=== PATIENT | female | born 1980 | race Caucasian/White ===

== ENCOUNTER → 2016-08-27 | Outpatient (CLI) | payer OTHER ==
[~2016-08-27] MED LIST: PREN1CAP20
[2016-08-27 10:32] VITALS: BP 106/64; PULSE 87; RESP 15; TEMP 98.5
== END ==
LOC: CLAB 08:16
PROVIDERS: ATTEND Obstetrics & Gynecology
DX: O36.0920 Maternal care for other rhesus isoimmunization, second trimester, not applicable or unspecified (principal); Z11.3 Encounter for screening for infections with a predominantly sexual mode of transmission; Z3A.00 Weeks of gestation of pregnancy not specified
CPT/HCPCS: 36415; 86850; 86900; 86901; 96372; J2790; 90384

== ENCOUNTER 2016-10-26 23:20 | Inpatient (IN) | payer OTHER ==
[~2016-10-26] VITALS: Ht 167.6 cm; Wt 64.0 kg
[2016-10-26] MEDS ORDERED: LACTATED RINGER'S 1000 ML INJ 1,000 ML IV SCH (23:50)
[2016-10-26] MEDS ORDERED: LACTATED RINGER'S 1000 ML INJ 1,000 ML IV PRN (23:50)
--- NOTE | 2016-10-26 23:50 | HHI.HP ---
HPI Chief Complaint Water broke and contractions Date Seen: Oct 26, 2016 Time Seen: 23:45 Travel History International Travel<30 Days: No Contact w/Intl Traveler<30Days: No Known Affected Area: No History of Present Illness HPI Patient is 36-year-old white female at [address] Luna for care presents with the complaint of her water breaking and now in labor. heart tones are reactive contractions noted on the monitor to be regular and painful. Amnio sure is positive and has gross rupture the membranes noted on exam and OB ED Weeks Gestation: 38 Para: 0 : 1 History Social History Alcohol Use: No Tobacco Use: No Substance Abuse: No Allergies-Medications (Allergen,Severity, Reaction): Coded Allergies: doxycycline (Unverified Allergy, Intermediate, joint swells, 10/06/16) minocycline (Unverified Allergy, Intermediate, joint swells, 10/06/16) tigecycline (Unverified Allergy, Intermediate, joint swells, 10/06/16) amoxicillin (Unverified Allergy, Unknown, throat itches, 10/06/16) penicillin G (Unverified Allergy, Unknown, throat itches, 10/06/16) Home Meds Reported Medications W/O Vit A W/ Fe Carbo (Prenate Mini 18-0.6-0.4-350 mg) 1 Cap Cap 04/02/16 Review of Systems General / Constitutional: No: Fever, Weight Gain, Chills, Other Eyes: No: Diploplia, Blurred Vision, Visual changes, Pain, Photophobia HENT: No: Headaches, Vertigo, Lightheadedness Cardiovascular: No: Irregular Rhythm, Chest Pain or Discomfort, Palpitations, Tachycardia, Syncope, Varicosities, Edema, Cyanosis Respiratory: No: Cough, Short of Breath, Other Gastrointestinal: Abdominal Pain, No: Nausea, Vomiting, Diarrhea Genitourinary: No: Decreased Urinary Output, Oliguria Musculoskeletal: No: Limited ROM, Weakness, Cramping, Edema, Pain Skin: No Rash, No Itching, No Dryness, No Lumps, No Change in Pigmentation, No Change in Nails, No Alopecia, No Lesions Neurologic: No: Weakness, Dizziness, Syncope, Focal Abnormalities, Coordination Problem, Headache, Slurred Speech, Seizures Psychiatric: No: Depression, Suicidal Ideations, Homicidal Ideation Endocrine: No: Heat Intolerance, Cold Intolerance, Polydipsia, Polyuria, Other Physical Exam Narrative GENERAL: Well-nourished, well-developed patient. SKIN: Warm and dry. HEAD: Normocephalic and atraumatic. EYES: No scleral icterus. No injection or drainage. ENT: No nasal drainage noted. Mucous membranes pink. Airway patent. NECK: Supple, trachea midline. No JVD. CARDIOVASCULAR: Regular rate and rhythm without murmurs, gallops, or rubs. RESPIRATORY: Breath sounds equal bilaterally. No accessory muscle use. BREASTS: Bilateral exam showed no masses , no retractions, no nipple discharge. ABDOMEN/GI: Abdomen soft, non-tender, bowel sounds present, no rebound, no guarding Gravid to [38-] weeks size Fundal Height: [38-] GENITOURINARY: External Genitalia: intact and normal in appearance BUS glands: [-] Cervix: [Posterior-] Dilatation: [3-] Effacement: [60-] Station: [-3] Presentation: [vtx-] Membranes: ruptured] positive amnio sure Uterine Contractions: [reg-] FHT's: Category: [1-] Baseline: [133-] Reactive: [-yes] Variability: [mod-] Decels: [none-] EXTREMITIES: No cyanosis or edema. BACK: Nontender without obvious deformity. No CVA tenderness. NEUROLOGICAL: Awake and alert. Motor and sensory grossly within normal limits. Five out of 5 muscle strength in all muscle groups. Normal speech. Caprini VTE Risk Assessment Caprini VTE Risk Assessment: No/Low Risk (score <= 1) Caprini Risk Assessment Model Point Value = 1 Point Value = 2 Point Value = 3 Point Value = 5 Age 41-60 Minor surgery BMI > 25 kg/m2 Swollen legs Varicose veins or History of unexplained or recurrent spontaneous Oral contraceptives or hormone replacement Sepsis (< 1 month) Serious lung disease, including pneumonia (< 1 month) Abnormal pulmonary function Acute myocardial infarction Congestive heart failure (< 1 month) History of inflammatory bowel disease Medical patient at bed rest Age 61-74 Arthroscopic surgery Major open surgery (> 45 min) Laparoscopic surgery (> 45 min) Malignancy Confined to bed (> 72 hours) Immobilizing plaster cast Central venous access Age >= 75 History of VTE Family history of VTE Factor V Leiden Prothrombin [id number] Lupus anticoagulant Anticardiolipin antibodies Elevated serum homocysteine Heparin-induced thrombocytopenia Other congenital or acquired thrombophilia Stroke (< 1 month) Elective arthroplasty Hip, pelvis, or leg fracture Acute spinal cord injury (< 1 month) Prophylaxis Regimen Total Risk Factor Score Risk Level Prophylaxis Regimen 0-1 Low Early ambulation 2 Moderate Order ONE of the following: *Sequential Compression Device (SCD) *Heparin 5000 units SQ BID 3-4 Higher Order ONE of the following medications: *Heparin 5000 units SQ TID *Enoxaparin/Lovenox 40 mg SQ daily (WT < 150 kg, CrCl > 30 mL/min) *Enoxaparin/Lovenox 30 mg SQ daily (WT < 150 kg, CrCl > 10-29 mL/min) *Enoxaparin/Lovenox 30 mg SQ BID (WT < 150 kg, CrCl > 30 mL/min) AND/OR *Sequential Compression Device (SCD) 5 or more Highest Order ONE of the following medications: *Heparin 5000 units SQ TID (Preferred with Epidurals) *Enoxaparin/Lovenox 40 mg SQ daily (WT < 150 kg, CrCl > 30 mL/min) *Enoxaparin/Lovenox 30 mg SQ daily (WT < 150 kg, CrCl > 10-29 mL/min) *Enoxaparin/Lovenox 30 mg SQ BID (WT < 150 kg, CrCl > 30 mL/min) AND *Sequential Compression Device (SCD) Data Data Orders Orders Ob (2e) Additional Admit Info (10/26/16 23:39) Group B Strep: Negative Labs Amnio sure positive Assessment/Plan Assessment and Plan Patient is 36-year-old white female at 38 weeks presents with spontaneous ruptured membranes and early labor. heart rates reactive with contractions noted on the monitor., Patient's cervix is 3/ 60 and -3 vertex with gross ruptured membranes noted on admission. Clear fluid noted. The patient is GBS negative and records are available. Dr. Luna is her doctor and will notify him of her arrival Julius Yi II, MD Oct 26, 2016 23:49
[2016-10-27] VITALS (70 sets, daily range): BP systolic 92–140; BP diastolic 55–102; PULSE 61–118; RESP 14–18; TEMP 97.9–99.3
[2016-10-27] MEDS ORDERED: SODIUM CHLORID 0.9% 500 ML INJ 500 ML IV PRN
[2016-10-27] MEDS ORDERED: OXYTOCIN 30 UNITS-500ML PREMIX 500 ML IV ONE
[2016-10-27] MEDS ORDERED: MINERAL OIL 10 ML VIAL TOPICAL PRN
[2016-10-27] MEDS ORDERED: LIDOCAINE HCL 1% 50 ML VIAL INFIL PRN
[2016-10-27] MEDS ORDERED: NO SYSTEM NARCOTICS PRN
[2016-10-27] MEDS ORDERED: DO NOT ADMINISTER ANTICOAGULANTS PRN
[2016-10-27] MEDS ORDERED: CITRIC ACID-SODIUM CITRATE LIQ 30 ML UDC PO SCH
[2016-10-27] MEDS ORDERED: LIDOCAINE HCL 1% 50 ML VIAL I-DERMAL PRN
[2016-10-27] MEDS ORDERED: SODIUM CHLOR 0.9% 1000 ML INJ 1,000 ML IV PRN (00:10)
[2016-10-27 00:27] LABS: AUTOMATED NEUTROPHIL # 5.8 TH/MM3 (1.8-7.7); BASOPHIL % 0.3 % (0.0-2.0); EOSINOPHIL # 0.1 TH/MM3 (0-0.4); EOSINOPHIL % 0.7 % (0.0-4.0); HEMATOCRIT 39.2 % (35.0-46.0); HEMO FLAGS DIFF FINAL; LYMPH % 25.8 % (9.0-44.0); LYMPHOCYTE # 2.2 TH/MM3 (1.0-4.8); MEAN CELL VOLUME 90.2 FL (80.0-100.0); MEAN CORPUSCULAR HEMOGLOBIN 30.5 PG (27.0-34.0); MEAN CORPUSCULAR HGB CONC 33.8 % (32.0-36.0); MONO % 5.6 % (0.0-8.0); NEUT % 67.6 % (16.0-70.0); PLATELET COUNT 146 TH/MM3 (150-450); RED BLOOD COUNT 4.34 MIL/MM3 (4.00-5.30); RED CELL DISTRIBUTION WIDTH 13.7 % (11.6-17.2); WHITE BLOOD COUNT 8.5 TH/MM3 (4.0-11.0)
[2016-10-27 00:41] LABS: BLOOD, URINE TRACE (NEG); COMMENT (UR) CULT NOT INDICATED; CULTURE IF INDICATED CULT NOT INDICATED; GLUCOSE,URINE NEG (NEG); KETONE, URINE NEG (NEG); NITRITE,URINE NEG (NEG); PH, URINE 6.5 (5.0-8.5); SQUAMOUS EPITHELIAL CELL URINE 1 /hpf (0-5); URINE COLOR LIGHT-YELLOW (YELLW/STRAW)
[2016-10-27] MEDS ORDERED: fentaNYL 2MCG-BUPIV 0.125% INJ 100 ML ONE (00:49)
[2016-10-27] MEDS ORDERED: ePHEDrine/NS 25 MG/5 ML SYR IV PRN (02:15)
--- NOTE | 2016-10-27 02:54 | PD.LABORPN ---
Subjective Subjective doing well comfortable on epidural Objective Vital Signs Vital Signs Date Time Temp Pulse Resp B/P (MAP) Pulse Ox O2 Delivery O2 Flow Rate FiO2 10/27/16 02:30 72 10/27/16 02:30 84 107/68 (81) 10/27/16 02:25 68 10/27/16 02:20 78 10/27/16 02:15 80 10/27/16 02:10 79 10/27/16 02:05 74 10/27/16 02:00 70 10/27/16 02:00 70 112/69 (83) 10/27/16 01:55 76 10/27/16 01:50 82 10/27/16 01:45 69 10/27/16 01:40 74 10/27/16 01:35 69 10/27/16 01:31 97.9 15 10/27/16 01:30 80 10/27/16 01:30 97.9 73 107/69 (82) 10/27/16 01:25 79 10/27/16 01:21 83 114/68 (83) 10/27/16 01:20 74 10/27/16 01:15 86 102/62 (75) 10/27/16 01:15 85 10/27/16 01:10 83 102/64 (77) 10/27/16 01:10 81 10/27/16 01:10 90 10/27/16 01:07 16 10/27/16 01:05 80 101/61 (74) 10/27/16 01:05 82 10/27/16 01:05 81 10/27/16 01:00 101 111/68 (82) 10/27/16 01:00 87 10/27/16 01:00 100 10/27/16 00:55 82 10/27/16 00:55 83 10/27/16 00:55 85 120/80 (93) 10/27/16 00:50 99 10/27/16 00:50 103 10/27/16 00:50 102 140/90 (107) 10/27/16 00:45 74 10/27/16 00:44 98.0 14 10/27/16 00:40 74 10/27/16 00:35 75 10/27/16 00:30 77 10/27/16 00:25 71 10/27/16 00:20 73 10/27/16 00:15 77 10/27/16 00:10 84 10/27/16 00:05 82 10/27/16 00:00 74 Objective Pelvic Exam: Cervix: [-] Dilatation: 3 Effacement: 70 Station: [-] Presentation: vtx Membranes: SROM Uterine Contractions: [-] FHT's: Category: 1 Baseline: [-] Reactive: [-] Variability: [-] Decels: [-] Weeks Gestation: 38 Gest Age Assessed Date: Oct 27, 2016 Gest Age Assessed Time: 02:50 Pt started active labor?: Yes Active labor start date: Oct 26, 2016 Active labor start time: 00:01 Medical induction of labor?: No Artificial rupture of membrane: No Assessment/Plan Problem List: (1) 38 weeks gestation of ICD Codes: Z3A.38 - 38 weeks gestation of Jake Wilder MD Oct 27, 2016 02:54
[2016-10-27] MEDS ORDERED: OXYTOCIN 30 UNITS-500ML PREMIX 500 ML IV SCH ×2 (03:00→13:45)
[2016-10-27] MEDS: fentaNYL 2MCG-BUPIV 0.125% 100 ML EPIDURAL SCH ×2 (03:08→09:10)
--- NOTE | 2016-10-27 10:31 | PD.LABORPN ---
Subjective Subjective doing well on epidural Objective Vital Signs Vital Signs Date Time Temp Pulse Resp B/P (MAP) Pulse Ox O2 Delivery O2 Flow Rate FiO2 10/27/16 10:00 98.3 65 100/56 (71) 10/27/16 09:30 68 99/59 (72) 10/27/16 09:10 16 10/27/16 09:00 72 105/56 (72) 10/27/16 08:30 64 113/66 (82) 10/27/16 08:00 98.1 16 10/27/16 08:00 71 117/71 (86) 10/27/16 07:30 69 101/61 (74) 10/27/16 07:00 63 107/64 (78) 10/27/16 06:30 71 105/75 (85) 10/27/16 06:26 75 110/70 (83) 10/27/16 06:00 98.1 16 10/27/16 06:00 63 10/27/16 05:30 66 108/68 (81) 10/27/16 05:00 63 118/68 (85) 10/27/16 04:30 64 111/74 (86) 10/27/16 04:00 98.0 14 10/27/16 04:00 69 97/56 (70) 10/27/16 03:30 65 104/76 (85) 10/27/16 03:08 14 10/27/16 03:00 75 92/61 (71) 10/27/16 02:45 71 10/27/16 02:40 72 10/27/16 02:35 84 Objective Pelvic Exam: Cervix: [-] Dilatation: 8 Effacement: 80 Station: -1 Presentation: vtx Membranes: ruptured Uterine Contractions: [-] FHT's: Category: 1 Baseline: [-] Reactive: [-] Variability: [-] Decels: [-] Weeks Gestation: 38 Gest Age Assessed Date: Oct 27, 2016 Gest Age Assessed Time: 02:50 Pt started active labor?: Yes Active labor start date: Oct 26, 2016 Active labor start time: 00:01 Medical induction of labor?: No Artificial rupture of membrane: No Assessment/Plan Problem List: (1) 38 weeks gestation of ICD Codes: Z3A.38 - 38 weeks gestation of Jake Wilder MD Oct 27, 2016 10:31
--- NOTE | 2016-10-27 13:34 | PD.OB.DELI ---
Weeks gestation: 38 Gest age assessed date: Oct 27, 2016 Gest age assessed time: 02:50 Pt started active labor?: Yes Active labor start date: Oct 26, 2016 Active labor start time: 00:01 Medical induction of labor?: No Artificial rupture of membrane: No Anesthesia: Epidural Episiotomy: Right mediolateral Presentation: Occiput anterior Nuchal Cord: x1 Delayed cord clamping (45 sec): Yes : Female, Single Delivery date: Oct 27, 2016 Delivery time: 13:15 One Minute : 8 Five Minute : 9 Placenta: Spontaneous delivery, Intact, 3 vessel cord Laceration: Vaginal laceration, 2 deg Repair: Chromic running Estimated blood loss: 300 Jake Wilder MD Oct 27, 2016 13:34
[2016-10-27] MEDS ORDERED: ACETAMINOPHEN 325 MG TAB PO PRN (13:45)
[2016-10-27] MEDS ORDERED: DOCUSATE SODIUM 50 MG/SENNA 8.6 MG TAB PO PRN (13:45)
[2016-10-27] MEDS ORDERED: ZOLPIDEM TARTRATE 5 MG TAB PO PRN (13:45)
[2016-10-27] MEDS ORDERED: BENZOCAINE 20% TOPICAL SPRAY 60 ML CAN TOPICAL PRN (13:45)
[2016-10-27] MEDS ORDERED: WITCH HAZEL 50%/GLYCERIN 12.5% 40 PAD JAR TOPICAL PRN (13:45)
[2016-10-27] MEDS ORDERED: SODIUM CHLORIDE 0.9% FLUSH 10 ML FLUSH IV FLUSH PRN (13:45)
[2016-10-27] MEDS ORDERED: ALUMINUM/MAGNESIUM/SIMETH 30 ML CUP PO PRN (13:45)
[2016-10-27] MEDS ORDERED: ONDANSETRON ODT 4 MG TAB PO PRN (13:45)
[2016-10-27] MEDS ORDERED: DIPHTH/TETANUS/ACEL PERTUSSIS (BOOSTER) 0.5 ML VIAL/PFS IM ONE (16:00)
[2016-10-27] MEDS ORDERED: MEASLES, MUMPS, RUBELLA VACCINE 0.5 ML VIAL SQ ONE (16:00)
[2016-10-27] MEDS: IBUPROFEN 600 MG TAB PO PRN (18:16)
[2016-10-27] MEDS: oxyCODONE/ACETAMINOPHEN 5 MG/325 MG TAB PO PRN (20:28)
[2016-10-27] MEDS ORDERED: SODIUM CHLORIDE 0.9% FLUSH 10 ML FLUSH IV FLUSH SCH (21:00)
[2016-10-28] MEDS: oxyCODONE/ACETAMINOPHEN 5 MG/325 MG TAB PO PRN ×3 (03:38→13:27)
[2016-10-28] MEDS: IBUPROFEN 600 MG TAB PO PRN ×2 (03:38→13:26)
--- NOTE | 2016-10-28 05:55 | HHI.DCPOC ---
Discharge Care Plan Diagnosis: (1) Spontaneous vaginal delivery (2) 38 weeks gestation of Report Symptoms to Your Doctor -Temperature above 100.5 degrees -Redness, of incision or excessive or foul smelling drainage -Unusual pain or calf pain -Increased vaginal bleeding -Painful or difficulty urinating -Feelings of extreme sadness or anxiety after 2 weeks Goals to Promote Your Health * To prevent worsening of your condition and complications * To maintain your health at the optimal level Directions to Meet Your Goals Take your medications as prescribed Follow your dietary instruction Follow activity as directed Ensure plenty of rest for recovery Drink fluids for hydration Keep your appointments as scheduled Take your immunizations and boosters as scheduled If your symptoms worsen call your PCP, if no PCP go to Urgent Care Center or Emergency Room Smoking is Dangerous to Your Health. Avoid second hand smoke Call the 24-hour crisis hotline for domestic abuse at Jake Wilder MD Oct 28, 2016 05:55
--- NOTE | 2016-10-28 06:10 | HHI.OB ---
Subjective Post Day: 1 Remarks doing well dc home Objective Vitals/I&O Vital Signs Date Time Temp Pulse Resp B/P (MAP) Pulse Ox O2 Delivery O2 Flow Rate FiO2 10/27/16 21:25 97.9 61 16 102/68 (79) 10/27/16 17:11 98.2 62 18 111/67 (82) 10/27/16 14:31 81 109/68 (82) 10/27/16 14:17 79 112/65 (81) 10/27/16 14:10 18 10/27/16 14:04 86 129/59 (82) 10/27/16 13:45 84 130/74 (92) 10/27/16 13:40 99.3 18 10/27/16 13:30 91 115/63 (80) 10/27/16 13:19 101 120/65 (83) 10/27/16 13:00 118 119/87 (98) 10/27/16 12:43 105 115/73 (87) 10/27/16 12:31 112 122/102 (109) 10/27/16 11:31 84 117/65 (82) 10/27/16 11:00 70 103/57 (72) 10/27/16 10:30 73 96/55 (69) 10/27/16 10:00 98.3 65 100/56 (71) 10/27/16 09:30 68 99/59 (72) 10/27/16 09:10 16 10/27/16 09:00 72 105/56 (72) 10/27/16 08:30 64 113/66 (82) 10/27/16 08:00 98.1 16 10/27/16 08:00 71 117/71 (86) 10/27/16 07:30 69 101/61 (74) 10/27/16 07:00 63 107/64 (78) 10/27/16 06:30 71 105/75 (85) 10/27/16 06:26 75 110/70 (83) Objective Remarks GENERAL: Well-nourished, well-developed patient. ABDOMEN/GI: Abdomen soft, non-tender. Fundus: Firm, non-tender at umbilicus. GENITOURINARY: Light to moderate bleeding. EXTREMITIES: No cyanosis or edema, non-tender, without signs of DVT. Medications and IVs Current Medications Medications (Trade) Dose Ordered Sig/Todd Route Start Time Stop Time Status Last Admin Fentanyl/ Bupivacaine HCl 100 ml @ 0 mls/hr TITRATE EPIDURAL 10/27/16 00:00 10/27/16 09:10 (NS Flush) 2 ml BID IV FLUSH 10/27/16 21:00 (NS Flush) 2 ml UNSCH PRN IV FLUSH 10/27/16 13:45 (Tylenol) 650 mg Q4H PRN PO 10/27/16 13:45 (Motrin) 600 mg Q6H PRN PO 10/27/16 13:45 10/28/16 03:38 (Percocet 5-325 Mg) 1 tab Q4H PRN PO 10/27/16 13:45 10/28/16 03:38 (Percocet 5-325 Mg) 2 tab Q4H PRN PO 10/27/16 13:45 (Americaine 20% Top Spr) 1 spray Q4H PRN TOPICAL 10/27/16 13:45 10/27/16 17:39 (Tucks Pads) 1 applic QID PRN TOPICAL 10/27/16 13:45 10/27/16 17:39 (Moon-Colace) 2 tab Q12H PRN PO 10/27/16 13:45 (Ambien) 5 mg HS PRN PO 10/27/16 13:45 (Mag-Al Plus Susp Liq) 15 ml Q8H PRN PO 10/27/16 13:45 (Zofran Odt) 4 mg Q6H PRN PO 10/27/16 13:45 Assessment/Plan Problem List: (1) 38 weeks gestation of ICD Codes: Z3A.38 - 38 weeks gestation of Assessment and Plan Dc home follow 2 weeks Jake Wilder MD Oct 28, 2016 06:10
[2016-10-28] MEDS ORDERED: OXYC1TAB63 PO (06:14)
--- NOTE | 2016-10-28 06:15 | HHI.DS ---
Admission Date Oct 26, 2016 at 23:39 Discharge Date: Oct 28, 2016 Admitting Diagnosis Diagnosis: (1) Spontaneous vaginal delivery ICD Codes: O80 - Encounter for full-term uncomplicated delivery Delivery Date: Oct 27, 2016 Vaginal Delivery: Normal, Spontaneous Infant: Female, Single Brief History Patient is 36-year-old white female at [address] Luna for care presents with the complaint of her water breaking and now in labor. heart tones are reactive contractions noted on the monitor to be regular and painful. Amnio sure is positive and has gross rupture the membranes noted on exam and OB ED Hospital Course doing well. Dc home PPD #1 Pt Condition on Discharge: Good Discharge Disposition: Discharge Home Discharge Instructions Diet Instructions: As Tolerated, No Restrictions Activities You Can Perform: Pelvic Rest Activities to Avoid: Driving for 24 hrs Follow up Referrals: [facility] - 2 Weeks @ [facility] with Jake Wilder MD New Medications: Oxycodone-Acetaminophen (Oxycodone-Acetaminophen) 5-325 mg Tab 2 TAB PO Q4H PRN for PAIN SCALE 6 TO 10 for 7 Days, #20 TAB 0 Refills Continued Medications: W/O Vit A W/ Fe Carbo (Prenate Mini 18-0.6-0.4-350 mg) 1 Cap Cap Jake Wilder MD Oct 28, 2016 06:15
[2016-10-28 08:25] VITALS: BP 105/65; PULSE 65; RESP 18; TEMP 97.9
[2016-10-28 08:45] VITALS: BP 105/65; PULSE 65; RESP 18; TEMP 97.9
== END 2016-10-28 17:20 | disposition home or self-care (01) | DRG 775 ==
LOC: HOBED 23:20 → H2EB 23:39 → H1EA 10-27 16:15
PROVIDERS: ADMIT Obstetrics & Gynecology; ATTEND Obstetrics & Gynecology
PROC: 10E0XZZ Delivery of Products of Conception, External Approach (ICD-10-PCS; principal; 2016-10-27)
PROC: 0KQM0ZZ Repair Perineum Muscle, Open Approach (ICD-10-PCS; 2016-10-27)
PROC: 3E0S3CZ (ICD-10-PCS; 2016-10-27)
PROC: 00HU33Z Insertion of Infusion Device into Spinal Canal, Percutaneous Approach (ICD-10-PCS; 2016-10-27)
DX: O70.1 Second degree perineal laceration during delivery (principal); Z37.0 Single live birth; Z3A.38 38 weeks gestation of pregnancy
CPT/HCPCS: 81001; 84112; 85025; 85461; 86850; 86900; 86901; 90384; 90715; J2590; J2790; J7120